=== PATIENT | male | born 1965 | race Caucasian/White ===

== ENCOUNTER → 2019-01-10 | Outpatient (CLI) | payer OTHER | END | disposition home or self-care (01) | LOC: RAD 13:35 | DX: M19.072 Primary osteoarthritis, left ankle and foot (principal); M25.472 Effusion, left ankle ==

== ENCOUNTER → 2019-03-13 | Outpatient (CLI) | payer OTHER | END | disposition home or self-care (01) | LOC: RAD 15:04 | DX: M79.645 Pain in left finger(s) (principal) ==

== ENCOUNTER 2020-05-18 11:08 | Emergency (ER) | payer OTHER ==
[~2020-05-18] VITALS: Ht 182.8 cm; Wt 93.0 kg
[2020-05-18] MEDS ORDERED: MEDROL DOSEPAK4 MG PO ×3 (12:58→13:17)
== END 2020-05-18 13:40 | disposition home or self-care (01) ==
LOC: ED 11:08
DX: M25.511 Pain in right shoulder (principal); G89.29 Other chronic pain

== ENCOUNTER 2021-07-10 04:27 | Emergency (ER) | payer OTHER ==
[~2021-07-10] VITALS: Wt 95.7 kg
[~2021-07-10 04:27] MED LIST: MEDROL DOSEPAK4 MG PO
[2021-07-10 05:08] LABS: BILIRUBIN 1+ (Negative); BLOOD Negative (Negative); CLARITY Cloudy (Clear); COLOR Dark Yellow (Yellow); GLUCOSE Negative (Negative); KETONE Negative (Negative); LEUKO ESTERASE 2+ (Negative); NITRITE Positive (Negative); PH 6.5 (4.5-8.0); SPECIFIC GRAVITY 1.015 (1.001-1.030)
[2021-07-10 05:26] LABS: BACTERIA 4+; RBC 16-20 rbc/hpf (0-2); WBC 51-100 wbc/hpf (0-5)
[2021-07-10] MEDS ORDERED: CIPRO500 MG PO (05:32)
== END 2021-07-10 05:41 | disposition home or self-care (01) ==
LOC: ED 04:27
PROVIDERS: Internal Medicine
DX: R33.9 Retention of urine, unspecified (principal); N39.0 Urinary tract infection, site not specified

== ENCOUNTER 2022-10-05 09:29 | Emergency (ER) | payer OTHER ==
[~2022-10-05] VITALS: Ht 182.8 cm; Wt 97.5 kg
[~2022-10-05 09:29] MED LIST changes: +CIPRO500 MG PO
[2022-10-05] MEDS ORDERED: GABAPENTIN600 MG PO (09:46)
[2022-10-05] MEDS ORDERED: TRAZODONE100 MG PO (09:47)
[2022-10-05] MEDS ORDERED: SEROQUEL25 MG PO (09:48)
[2022-10-05] MEDS ORDERED: DEPAKOTE500 M2 PO (09:49)
[2022-10-05] MEDS ORDERED: CYCLOBENZAPRINE10 MG PO (10:06)
[2022-10-05] MEDS ORDERED: PREDNISONE10 MG PO (10:06)
== END 2022-10-05 11:01 | disposition home or self-care (01) ==
LOC: ED 09:29
DX: M54.50 Low back pain, unspecified (principal); G89.29 Other chronic pain

== ENCOUNTER 2022-11-22 14:27 | Emergency (ER) | payer OTHER ==
[~2022-11-22] VITALS: Ht 182.8 cm; Wt 84.8 kg
[~2022-11-22 14:27] MED LIST changes: +CYCLOBENZAPRINE10 MG PO; +DEPAKOTE500 M2 PO; +GABAPENTIN600 MG PO; +PREDNISONE10 MG PO; +SEROQUEL25 MG PO; +TRAZODONE100 MG PO
[2022-11-22] MEDS ORDERED: PREDNISONE20 M1 PO (16:33)
== END 2022-11-22 16:39 | disposition home or self-care (01) ==
LOC: ED 14:27
DX: M62.830 Muscle spasm of back (principal)

== ENCOUNTER → 2022-11-25 | Outpatient (CLI) | payer OTHER ==
[~2022-11-25] MED LIST changes: +PREDNISONE20 M1 PO
== END | disposition home or self-care (01) ==
LOC: MRI 11-17 13:00
PROVIDERS: ATTEND Nurse Practitioner Family
DX: M47.816 Spondylosis without myelopathy or radiculopathy, lumbar region (principal); M48.07 Spinal stenosis, lumbosacral region

== ENCOUNTER 2024-04-07 08:48 | Emergency (ER) | payer OTHER, MEDICAID ==
[~2024-04-07] VITALS: Ht 180.3 cm; Wt 99.8 kg
[2024-04-07] MEDS ORDERED: AVPAK AZITHROM250 MG PO (10:31)
== END 2024-04-07 16:54 | disposition home or self-care (01) ==
LOC: ED 08:48
DX: J02.8 Acute pharyngitis due to other specified organisms (principal); Z20.822 Contact with and (suspected) exposure to COVID-19; H92.02 Otalgia, left ear

== ENCOUNTER 2024-05-02 10:21 | Emergency (ER) | payer OTHER ==
[~2024-05-02] VITALS: Wt 97.5 kg
[~2024-05-02 10:21] MED LIST changes: +AVPAK AZITHROM250 MG PO
[2024-05-02] MEDS ORDERED: MAGNESIUM CITRATE 296 ML BOT PO ONE (12:55)
== END 2024-05-02 13:03 | disposition home or self-care (01) ==
LOC: ED 10:21
DX: K59.00 Constipation, unspecified (principal)

== ENCOUNTER 2024-08-23 00:26 | Emergency (ER) | payer OTHER ==
[~2024-08-23] VITALS: Ht 185.4 cm; Wt 99.8 kg
[2024-08-23] MEDS ORDERED: LORazepam 1 MG TAB PO ONE (01:45)
[2024-08-23] MEDS ORDERED: PREDNISONE20 M1 PO (01:45)
== END 2024-08-23 01:48 | disposition home or self-care (01) ==
LOC: ED 00:26
DX: J40 Bronchitis, not specified as acute or chronic (principal); G47.00 Insomnia, unspecified; I10 Essential (primary) hypertension; E11.9 Type 2 diabetes mellitus without complications; E78.00 Pure hypercholesterolemia, unspecified